=== PATIENT | female | born 1960 | race Caucasian/White ===

== ENCOUNTER → 2019-05-13 | Outpatient (CLI) | payer OTHER ==
[~2019-05-13] MED LIST: ESTRACE 1MG1 MG/TAB PO; LIPITOR 10MG10 MG PO; VITAMIN B122500 MCG SL
== END ==
LOC: MC.RAD 04-07 16:00
DX: Z12.31 Encounter for screening mammogram for malignant neoplasm of breast (principal)

== ENCOUNTER 2021-01-25 15:51 | Emergency (ER) | payer OTHER ==
[~2021-01-25] VITALS: Ht 167.6 cm; Wt 90.9 kg
[2021-01-25 16:49] VITALS: TEMP 98.1
[2021-01-25 17:19] LABS: BASO % 0.3 % (0.0-2.0); EOS # 0.1 (0.0-0.7); EOS % 0.9 % (0-4.0); GRAN # 8.2 (1.4-6.5); GRAN % 70.2 % (42.2-75.2); HEMATOCRIT 47.3 % (37.0-47.0); LYMPH # 2.6 (1.2-3.4); LYMPH % 22.5 % (20.0-51.0); MEAN CELL VOLUME 87 fl (80.0-100.0); MEAN CORPUSCULAR HEMOGLOBIN 29 pg (27.0-31.0); MEAN CORPUSCULAR HGB CONC 34 g/dl (33.0-37.0); MEAN PLATELET VOLUME 9.9 fl (7.4-10.4); MONO # 0.7 (0.1-0.6); MONO % 5.8 % (1.7-9.3); PLATELET COUNT 261 K/mm3 (130-400); RED BLOOD COUNT 5.46 M/mm3 (4.10-5.30); REDCELL DISTRIBUTION WIDTH-CV 13.2 % (11.5-14.5)
[2021-01-25 17:28] LABS: ALBUMIN 4.7 gm/dL (3.5-5.0); CALCIUM 10.4 mg/dL (8.4-10.2); CREATININE, serum 0.62 (0.52-1.25); POTASSIUM 3.9 mmol/L (3.4-5.0); TOTAL PROTEIN 8.2 gm/dL (6.4-8.2)
[2021-01-25 17:44] LABS: TROPONIN-I 1.86 ng/mL (0.000-0.035)
[2021-01-25 18:45] LABS: PROTHROMBIN TIME 11.6 SECONDS (9.7-12.8)
[2021-01-25 18:47] LABS: PARTIAL THROMBOPLASTIN TIME 33.8 SECONDS (26.0-37.0)
[2021-01-25] MEDS ORDERED: WELLBUTRIN XL300 M1 PO (20:04)
[2021-01-25 21:01] LABS: COLLECTION METHOD CLEAN CATCH
[2021-01-25 21:11] LABS: PH 6 (5-8); URINE APPEARANCE Hazy; URINE BACTERIA None Seen /hpf; URINE BILIRUBIN Negative (NEGATIVE); URINE BLOOD 1+ (NEGATIVE); URINE COLOR Yellow; URINE GLUCOSE Negative (NEGATIVE); URINE KETONE 1+ (NEGATIVE); URINE LEUKOCYTE ESTERASE 3+ (NEGATIVE); URINE NITRATE Negative (NEGATIVE); URINE PROTEIN(semi-quant) Negative (NEGATIVE); URINE RBC 0-2 /hpf; URINE UROBILINOGEN Negative (NEGATIVE)
[2021-01-26 00:30] VITALS: BP 109/66; PULSE 91
== END 2021-01-26 00:40 | disposition short-term general hospital (02) ==
LOC: COL.ER 15:51
PROVIDERS: Emergency Medicine; Nurse Practitioner Family; Physician Assistant
DX: I21.4 Non-ST elevation (NSTEMI) myocardial infarction (principal); E78.5 Hyperlipidemia, unspecified; Z88.0 Allergy status to penicillin; Z20.822 Contact with and (suspected) exposure to COVID-19; Z88.1 Allergy status to other antibiotic agents; Z88.6 Allergy status to analgesic agent; Z87.891 Personal history of nicotine dependence
CPT/HCPCS: 99223; J1644; J2270; J2405; J7030

== ENCOUNTER 2021-05-31 15:27 | Outpatient (RCR) | payer OTHER ==
[~2021-05-31 15:27] MED LIST changes: +WELLBUTRIN XL300 M1 PO
== END 2021-06-05 13:40 | disposition home or self-care (01) ==
LOC: COL.CR 15:27
DX: I25.2 Old myocardial infarction (principal)

== ENCOUNTER → 2021-09-23 | Outpatient (CLI) | payer OTHER | LOC: MC.RAD 14:26 | DX: Z12.31 Encounter for screening mammogram for malignant neoplasm of breast (principal); N64.89 Other specified disorders of breast ==

== ENCOUNTER → 2021-09-26 | Outpatient (CLI) | payer OTHER | LOC: MC.RAD 06:56 | DX: N64.89 Other specified disorders of breast (principal) ==

== ENCOUNTER 2021-10-26 06:09 | Emergency (ER) | payer OTHER ==
[~2021-10-26] VITALS: Ht 167.6 cm; Wt 93.6 kg
[2021-10-26 06:11] VITALS: TEMP 98
[2021-10-26 06:38] LABS: BASO % 0.3 % (0.0-2.0); EOS # 0.7 K/mm3 (0.0-0.7); EOS % 5.7 % (0.0-4.0); GRAN # 6.8 K/mm3 (1.4-6.5); GRAN % 56.1 % (42.2-75.2); HEMATOCRIT 43.4 % (37.0-47.0); LYMPH % 32.9 % (20.0-51.0); MEAN CELL VOLUME 88 fl (80.0-100.0); MEAN CORPUSCULAR HEMOGLOBIN 30 pg (27-31); MEAN CORPUSCULAR HGB CONC 35 g/dl (33.0-37.0); MEAN PLATELET VOLUME 9.4 fl (7.4-10.4); MONO # 0.6 K/mm3 (0.1-0.6); MONO % 4.8 % (1.7-9.3); PLATELET COUNT 255 K/mm3 (130-400); RED BLOOD COUNT 4.95 M/mm3 (4.10-5.30); REDCELL DISTRIBUTION WIDTH-CV 13.2 % (11.5-14.5)
[2021-10-26 07:06] LABS: ALANINE AMINOTRANSFERASE 19 U/L (0-55); ALKALINE PHOSPHATASE 72 U/L (40-150); ANION GAP 8 mmol/L (7-16); AST,SGOT 13 U/L (5-34); BILIRUBIN,TOTAL 0.8 mg/dL (0.2-1.2); BLOOD UREA NITROGEN 17 mg/dL (10-20); CALCIUM 8.9 mg/dL (8.4-10.2); CARBON DIOXIDE 27 mmol/L (22-29); CHLORIDE 107 mmol/L (98-107); CREATININE, serum 0.85 mg/dL (0.57-1.11); GLUCOSE 95 mg/dL (70-99); POTASSIUM 3.6 mmol/L (3.5-4.5); SODIUM 142 mmol/L (136-145)
[2021-10-26 07:13] LABS: TROPONIN-I < 0.010 ng/mL (0.00-0.033)
[2021-10-26 08:43] VITALS: BP 133/73; PULSE 94
== END 2021-10-26 08:48 | disposition home or self-care (01) ==
LOC: COL.ER 06:09
PROVIDERS: Emergency Medicine
DX: R05.9 Cough, unspecified (principal)

== ENCOUNTER 2021-10-29 18:01 | Inpatient (IN) | payer OTHER ==
[2021-10-29 19:30] LABS: BASO % 0.3 % (0.0-2.0); EOS # 0.6 K/mm3 (0.0-0.7); EOS % 6.4 % (0.0-4.0); GRAN # 5.2 K/mm3 (1.4-6.5); GRAN % 57.4 % (42.2-75.2); HEMATOCRIT 46.4 % (37.0-47.0); HEMOGLOBIN 15.5 g/dl (12.5-16.0); LYMPH # 2.7 K/mm3 (1.2-3.4); LYMPH % 29.7 % (20.0-51.0); MEAN CELL VOLUME 90 fl (80.0-100.0); MEAN CORPUSCULAR HEMOGLOBIN 30 pg (27-31); MEAN CORPUSCULAR HGB CONC 33 g/dl (33.0-37.0); MEAN PLATELET VOLUME 9.3 fl (7.4-10.4); MONO # 0.5 K/mm3 (0.1-0.6); PLATELET COUNT 283 K/mm3 (130-400); RED BLOOD COUNT 5.16 M/mm3 (4.10-5.30)
[2021-10-29 19:44] LABS: ANION GAP 11 mmol/L (7-16); BLOOD UREA NITROGEN 15 mg/dL (10-20); CALCIUM 9.5 mg/dL (8.4-10.2); CARBON DIOXIDE 26 mmol/L (22-29); CHLORIDE 106 mmol/L (98-107); CREATININE, serum 0.82 mg/dL (0.57-1.11); GLUCOSE 102 mg/dL (70-99); MAGNESIUM 2.1 mg/dL (1.6-2.6); POTASSIUM 4.2 mmol/L (3.5-4.5); SODIUM 143 mmol/L (136-145)
[2021-10-29 19:53] LABS: TROPONIN-I < 0.010 ng/mL (0.00-0.033)
[2021-10-29] MEDS ORDERED: TOPROL XL 25MG25 MG PO (20:28)
[2021-10-29 21:05] VITALS: BP 161/86; PULSE 87; TEMP 97.7
[2021-10-30] VITALS (7 sets, daily range): BP systolic 124–147; BP diastolic 64–84; PULSE 76–89; TEMP 97.3–98.7
--- NOTE | 2021-10-30 00:31 | NUR ---
PT ARRIVES TO MEDICAL FLOOR AT ABOUT 1900 VIA WHEELCHAIR WITH FRIEND AT BEDSIDE TO ROOM 310. PT A/OX4, 02 2L NC, PT DYSPNEIC AND SOA.LUNGS AUSCULATED, ALL LOBES WHEEZING ON INSP/EXPIRATION. BLE +1 PITTING EDEMA. SYSTOLIC ELEVATED, AFEBRILE, 02 SATURATION WNL. THIS NURSE INITATED IV TO RFA. PT ASSESMENT COMPLETE. MED REC COMPLETE. POC DISCUSSED WITH PT. ALL QUESTIONS ANSWERED. HOSPITAL POLICY D/W PATIENT. PT ORIENTED TO ROOM AND FLOOR. ALL NEEDS MET AT THIS TIME. CALL LIGHT WITHIN REACH. PT ISNTRUCTED TO CALL TO AMBULATE SHE IS SOA. PT CONFRIMS UNDERSTANDING.
--- NOTE | 2021-10-30 00:36 | NUR ---
PT TRANSPORTED TO CT VIA WHEELCHAIR ON 2LNC, BY STREET PHOTOGRAPHER AT 2039 AND RETURNS TO FLOOR AT 2104. HOSPITALIST DISCUSSED RESULTS WITH PT. PT VERBALIZES UNDERSTADING.
--- NOTE | 2021-10-30 05:24 | NUR ---
PT LUNGS AUSCULATED AND SOUND MUCH BETTER THAN ADMISSION. PT FINDS MUCH RELIEF W/ BREATHING TX. 02 2L NC FOR COMFORT PT 02 SATURATION WNL. I&O NOTED AND RECORDED. VSS. ALL NEED MET THIS SHIFT. CALL LIGHT WTIHIN REACH.
--- NOTE | 2021-10-30 07:18 | NUR ---
THIS NURSE CONSULTED DR. PETERS AT THIS TIME. CONSULT COMPLETE.
--- NOTE | 2021-10-30 07:33 | NUR ---
Patient receiving a breathing treatment from RT upon entering the room. Patient on 2L O2 via NC, RT did not feel it was needed at this time and removed O2. Patient assisted w/ putting a gown on for echo and venous duplex. Patient is independent in the room and doing well. Does not have any complaints/concerns at this time.
--- NOTE | 2021-10-30 09:01 | NUR ---
SW met with the patient to discuss discharge plan. The patient lives in [place] her , [place] (ph#[phone]). She reports independence with ADLs and does not have any DME. The patient's PCP is Dr. Leatha Espinoza and she receives her medications from [facility]. She reports no difficulties obtaining her meds. The patient does not have a DPOA-HC in EMR, but she states that she does have one completed. She states that she will see if her can bring it up here, during her hospital stay. The patient plans on returning home with her upon discharge. No additional needs at this time. *Discharge plan: home with *
--- NOTE | 2021-10-30 16:16 | NUR ---
New IV started in patient's left hand, medication administered successfully, but IV was bugging the patient too much and she requested it be moved. Ej started an IV in the left forearm.
[2021-10-31 03:54] VITALS: BP 128/69; PULSE 77; TEMP 98.7
[2021-10-31 06:59] LABS: BASO % 0.1 % (0.0-2.0); GRAN # 10.5 K/mm3 (1.4-6.5); HEMATOCRIT 41.9 % (37.0-47.0); HEMOGLOBIN 14.2 g/dl (12.5-16.0); LYMPH # 1.5 K/mm3 (1.2-3.4); LYMPH % 11.8 % (20.0-51.0); MEAN CELL VOLUME 89 fl (80.0-100.0); MEAN CORPUSCULAR HEMOGLOBIN 30 pg (27-31); MEAN CORPUSCULAR HGB CONC 34 g/dl (33.0-37.0); MEAN PLATELET VOLUME 9.7 fl (7.4-10.4); MONO # 0.3 K/mm3 (0.1-0.6); MONO % 2.6 % (1.7-9.3); PLATELET COUNT 263 K/mm3 (130-400); REDCELL DISTRIBUTION WIDTH-CV 13.2 % (11.5-14.5)
[2021-10-31 07:04] LABS: CREATININE, serum 0.73 mg/dL (0.57-1.11); POTASSIUM 3.9 mmol/L (3.5-4.5)
[2021-10-31 07:45] VITALS: BP 157/73; PULSE 88; TEMP 97.6
--- NOTE | 2021-10-31 09:08 | NUR ---
Initial visit; Patient thanked [employer] And Bag Inspector for looking in on her and offering God 's blessings. Har[facility] And Bag Inspector thanked patient for choosing our hospital.
--- NOTE | 2021-10-31 09:33 | NUR ---
Patient requiring oxygen this morning, went from no O2 to 2L via NC. Patient's saturations are hovering around 93% on the 2L; drops to 89% w/o O2. Patient feeling disappointed about this. Rolanda notified about patient WBC going up and increased O2 requirments, CXR recommended.
[2021-10-31 12:00] VITALS: BP 131/71; PULSE 86; TEMP 98.4
[2021-10-31 16:35] VITALS: BP 131/80; PULSE 75; TEMP 97.4
[2021-10-31 19:47] VITALS: BP 148/80; PULSE 87; TEMP 97.5
--- NOTE | 2021-10-31 20:21 | NUR ---
Assessment complete and charted. Denies needs at this time. Call light in reach.
--- NOTE | 2021-10-31 22:10 | NUR ---
Reports 4/10 headache. Given PRN tylenol.
[2021-10-31 23:46] VITALS: BP 143/72; PULSE 70; TEMP 98
[2021-11-01] VITALS (7 sets, daily range): BP systolic 121–151; BP diastolic 70–87; PULSE 66–82; TEMP 97–98.5
--- NOTE | 2021-11-01 06:29 | NUR ---
Patient had uneventful night. Required x1 dose of tylenol for headache. Call light in reach.
--- NOTE | 2021-11-01 06:58 | NUR ---
Report given to MEKA Chaves
--- NOTE | 2021-11-01 07:50 | NUR ---
PT PLEASANT, AOX4, DENIES PAIN, TRIALED ON RA AND SATTING 89%. PLACE BACK ON 1L. PT ASSESSMENT PERFORMED, IV WRAPPED FOR SHOWER, SLIGHT TREMOR NOTED, NO OTHE RNEED
[2021-11-02 04:12] VITALS: BP 135/74; PULSE 66; TEMP 97.6
--- NOTE | 2021-11-02 05:31 | NUR ---
pt weaned to 0.5 L O2 per NC, no c/o pain or discomfort, up ad rafaela in room.
[2021-11-02 07:17] VITALS: BP 127/72; PULSE 69; TEMP 97.6
--- NOTE | 2021-11-02 07:45 | NUR ---
PT PLEASANT, AOX4, DENIES PAIN, EAGER FOR DISCHARGE, MEDICATIONS GIVEN, ASSESSMENT PERFORMED, CALL LIGHT WITHIN REACH, NO OTHER NEEDS
[2021-11-02] MEDS ORDERED: 00186-0370-20 IH ×2 (08:47)
[2021-11-02] MEDS ORDERED: INCRUSE EL62.5 MCG/A IH (08:48)
[2021-11-02] MEDS ORDERED: PREDNISONE20 MG PO (08:50)
--- NOTE | 2021-11-02 09:45 | NUR ---
PT DOES NOT REQUIRE OXYGEN AT THIS TIME
[2021-11-02] MEDS ORDERED: RT ADVAIR HFA 2312 G IH (09:56)
--- NOTE | 2021-11-02 10:31 | NUR ---
DISCHARGE EDUCATION PROVIDED TO PT, EDUCATED ON NEW MEDS, EDUCATED ON NEED TO MAKE FOLLOW UP APPTS, NO OTHER NEEDS, IV REMOVED, TELE REMOVED
--- NOTE | 2021-11-02 11:00 | NUR ---
PT ESCORTED OUT VIA WHEELCHAIR WITH ALL PERSONAL BELONGINGS. NO OTHER NEEDS
== END 2021-11-02 11:00 | disposition home or self-care (01) | DRG 189 ==
LOC: MEDICAL 18:30
PROVIDERS: Physician Assistant; Student in an Organized Health Care Education/Training Program; ADMIT Student in an Organized Health Care Education/Training Program
DX: J96.01 Acute respiratory failure with hypoxia (principal); J45.901 Unspecified asthma with (acute) exacerbation; I51.81 Takotsubo syndrome; E78.5 Hyperlipidemia, unspecified; I10 Essential (primary) hypertension; E11.9 Type 2 diabetes mellitus without complications; F32.A Depression, unspecified; F41.9 Anxiety disorder, unspecified; D72.19 Other eosinophilia; R23.2 Flushing; Z20.822 Contact with and (suspected) exposure to COVID-19; I25.2 Old myocardial infarction; Z23 Encounter for immunization
CPT/HCPCS: 99232-AI; 99233-AI; 99239; A9284; G0378; J1650; J2920; J2930; J7512; Q9967

== ENCOUNTER → 2022-01-14 | Outpatient (CLI) | payer OTHER ==
[~2022-01-14] MED LIST changes: +00186-0370-20 IH; +INCRUSE EL62.5 MCG/A IH; +PREDNISONE20 MG PO; +RT ADVAIR HFA 2312 G IH; +TOPROL XL 25MG25 MG PO
== END ==
LOC: COL.PUL 12:47
DX: R06.02 Shortness of breath (principal)
CPT/HCPCS: J7674

== ENCOUNTER → 2022-04-18 | Outpatient (CLI) | payer OTHER | LOC: MC.RAD 09:44 | DX: N63.20 Unspecified lump in the left breast, unspecified quadrant (principal) ==

== ENCOUNTER → 2022-11-10 | Outpatient (CLI) | payer OTHER | LOC: MC.RAD 14:00 | DX: N63.20 Unspecified lump in the left breast, unspecified quadrant (principal) ==

== ENCOUNTER → 2023-11-09 | Outpatient (CLI) | payer OTHER | LOC: MC.RAD 13:59 → COL.RAD 14:00 | DX: Z12.31 Encounter for screening mammogram for malignant neoplasm of breast (principal) ==